=== PATIENT | female | born 2000 | race American Indian/Alaskan Native ===

== ENCOUNTER 2021-11-08 11:03 | Emergency (ER) | payer MEDICAID ==
--- NOTE | 2021-11-08 12:02 | Emergency Department Report ---
ED Lower Extremity HPI - General Chief Complaint: Pain General Stated Complaint: SPIDER BITE/ SWOLLEN RIGHT KNEE Time Seen by Provider: 11/08/21 11:51 Source: patient Mode of arrival: Ambulatory Limitations: No Limitations - History of Present Illness Initial Comments: Patient is a 21-year-old female that comes to the emergency room complaining of knee swelling. She has no trauma. No insect bite, fall, contusion, abrasion or other insult. She has never had anything like this before. She took nothing prior to coming to the ER for the pain. She has not seen a primary care. MD Complaint: other -: Gradual, days(s) Severity scale (0 -10): 3 Improves With: nothing Worsens With: movement - Related Data Previous Rx's Medication Instructions Recorded Last Taken Type Ibuprofen [Motrin] 800 mg PO Q8HR PRN #30 tablet 11/08/21 Unknown Rx Allergies Allergy/AdvReac Type Severity Reaction Status Date / Time No Known Allergies Allergy Verified 11/08/21 11:36 ED Review of Systems ROS: Stated complaint: SPIDER BITE/ SWOLLEN RIGHT KNEE Other details as noted in HPI Comment: All other systems reviewed and negative ED Past Medical Hx - Past Medical History Previous Medical History?: No - Surgical History Past Surgical History?: No - Family History Family history: no significant - Social History Smoking Status: Never Smoker Substance Use Type: None - Medications Home Medications: Home Medications Medication Instructions Recorded Confirmed Last Taken Type Ibuprofen [Motrin] 800 mg PO Q8HR PRN #30 tablet 11/08/21 Unknown Rx ED Physical Exam - General Limitations: No Limitations General appearance: alert, in no apparent distress - Head Head exam: Present: atraumatic, normocephalic - Eye Eye exam: Present: normal appearance - ENT ENT exam: Present: mucous membranes moist - Neck Neck exam: Present: normal inspection - Respiratory Respiratory exam: Present: normal lung sounds bilaterally. Absent: respiratory distress - Cardiovascular Cardiovascular Exam: Present: regular rate, normal rhythm. Absent: systolic murmur, diastolic murmur, rubs, gallop - GI/Abdominal GI/Abdominal exam: Present: soft, normal bowel sounds - Extremities Exam Extremities exam: Present: normal inspection - Expanded Lower Extremity Exam Right Knee exam: Present: full ROM, tenderness, swelling, effusion - Back Exam Back exam: Present: normal inspection - Neurological Exam Neurological exam: Present: alert, oriented X3 - Psychiatric Psychiatric exam: Present: normal affect, normal mood - Skin Skin exam: Present: warm, dry, intact, normal color. Absent: rash ED Course Vital Signs 11/08/21 11/08/21 11:34 12:40 Temperature 98.9 F 98.0 F Pulse Rate 85 74 Respiratory 17 16 Rate Blood Pressure 121/72 Blood Pressure 133/86 [Right] O2 Sat by Pulse 100 100 Oximetry ED Lower Extremity MDM - Radiology Data Radiology results: report reviewed, image reviewed No acute process - Medical Decision Making Vital Signs 11/08/21 11/08/21 11:34 12:40 Temperature 98.9 F 98.0 F Pulse Rate 85 74 Respiratory 17 16 Rate Blood Pressure 121/72 Blood Pressure 133/86 [Right] O2 Sat by Pulse 100 100 Oximetry X-ray noted. Effusion noted on exam. There is no open area of skin no abrasion, laceration or contusion. Patient denies any trauma or insect bite. It is unclear why she has this effusion. Patient is otherwise healthy. Patient placed in a knee immobilizer and being sent to orthopedics. She remains neurovascularly intact. Distal peripheral circulation is intact. Patient has no fever or chills. No hypotension or tachycardia. Patient being discharged home with discharge plan of care including diet, activity, medications and follow-up. She verbalizes understanding of plan of care - Differential Diagnosis EFFUSION/RO FX MEMISCUS Critical care attestation.: If time is entered above; I have spent that time in minutes in the direct care of this critically ill patient, excluding procedure time. ED Disposition Clinical Impression: Knee effusion Disposition: 01 HOME / SELF CARE / HOMELESS Is pt being admited?: No Does the pt Need Aspirin: No Condition: Stable Instructions: Knee Effusion, [id number] Additional Instructions: REST ICE ELEVATE LEG KNEE IMMOBILIZER CRUTCHES FOR COMFORT MED ORDERED TODAY FOR PAIN FOLLOW UP WITH DR LINN IN 72 HOURS REFERRAL BELOW Prescriptions: Ibuprofen [Motrin] 800 mg PO Q8HR PRN #30 tablet PRN Reason: Pain, Moderate (4-6) Referrals: ALYSIA SHEARER MD [Staff Physician] - 3-5 Days Forms: Work/School Release Form(ED) Time of Disposition: 12:30
--- NOTE | 2021-11-08 12:34 | XRay Report ---
RIGHT KNEE 3 VIEW(S) INDICATION / CLINICAL INFORMATION: KNEE PAIN COMPARISON: None available. FINDINGS: BONES / JOINT(S): No acute fracture or subluxation. No significant arthritis. No significant joint ef fusion. SOFT TISSUES: No focal soft tissue abnormality. There is no soft tissue gas or radiopaque foreign bod y. ADDITIONAL FINDINGS: None. IMPRESSION: No acute osseous findings in the right knee. Signer Name: Garo Terrell MD Signed: 11/08/2021 12:29 PM Workstation Name: [id number]
[2021-11-08 12:49] VITALS: BP 133/86
== END 2021-11-08 13:16 | disposition home or self-care (01) ==
LOC: ED 11:03
DX: M25.461 Effusion, right knee (principal)
CPT/HCPCS: 99283